=== PATIENT | male | born 1940 | race Caucasian/White ===

== ENCOUNTER 2019-12-20 07:52 | Day surgery (SDC) | payer MEDICARE, OTHER ==
[2019-12-13 11:34] LABS: BASOPHILS # (AUTO) 0.1 X10'3 (0-0.2); BASOPHILS % (AUTO) 1.4 % (0-1); EOSINOPHILS # (AUTO) 0.3 X10'3 (0-0.9); EOSINOPHILS % (AUTO) 5.7 % (0-6); LYMPHOCYTES # (AUTO) 1.8 X10'3 (1.1-4.8); LYMPHOCYTES % (AUTO) 29.1 % (21-51); MEAN CORPUSCULAR HEMOGLOBIN 32.8 PG (27.0-31.0); MEAN CORPUSCULAR HGB CONC 34.6 g/dL (33.0-36.5); MEAN CORPUSCULAR VOLUME 94.7 FL (78-98); MEAN PLATELET VOLUME 8.4 FL (7.4-10.4); MONOCYTES # (AUTO) 0.6 X10'3 (0-0.9); MONOCYTES % (AUTO) 10.5 % (2-12); NEUTROPHILS # (AUTO) 3.2 X10'3 (1.8-7.7); NEUTROPHILS % (AUTO) 53.3 % (42-75); PRE OP HEMATOCRIT 40.7 % (42.0-52.0); PRE OP HEMOGLOBIN 14.1 g/dL (14.0-17.9); PRE OP PLATELET COUNT 181 X10'3 (140-440); RED BLOOD COUNT 4.29 X10'6 (4.70-6.10); RED CELL DISTRIBUTION WIDTH 13.1 % (11.5-14.5)
[2019-12-13 11:45] LABS: PRE OP PROTIME 36.1 SECONDS (9.0-12.0)
[2019-12-13 11:48] LABS: ALBUMIN 3.9 G/DL (3.4-5.0); ALBUMIN/GLOBULIN RATIO 1.1 (1.1-1.5); ALKALINE PHOSPHATASE 70 IU/L (46-116); BLOOD UREA NITROGEN 13 MG/DL (7-18); CALCIUM 8.7 MG/DL (8.5-10.1); CHLORIDE 107 MMOL/L (99-107); CREATININE 0.93 MG/DL (0.60-1.10); PRE OP ALT 24 U/L (30-65); PRE OP ANION GAP 6 (8-16); PRE OP AST 19 U/L (10-37); PRE OP BILIRUB, TOTAL 0.6 MG/DL (0.0-1.0); PRE OP GLUCOSE 95 MG/DL (70-104); PRE OP POTASSIUM 4.3 MMOL/L (3.4-5.1); PRE OP SODIUM 143 MMOL/L (135-145); TOTAL CARBON DIOXIDE 30.2 MMOL/L (24-32); TOTAL PROTEIN 7.3 G/DL (6.4-8.2); eGFR 79 ML/MIN
[2019-12-13 12:09] LABS: PRE OP INR 3.8 INR
[~2019-12-20] VITALS: Ht 177.8 cm; Wt 86.0 kg
[~2019-12-20 07:52] MED LIST: CHOL20002 PO; COU3T PO; DIGO125T AD; DILT-36 PO; LOVA40TA76 PO; MULT-1085 PO; OMEG-156 PO; TIM0.5OS OP; ceFAZolin 2gm in dextrose, iso 50 ML IV ONE; famotidine 20mg tablet PO ONE; ringers solution, lacted 1,000 ML IV SCH
[2019-12-20] MEDS ORDERED: LIDOcaine 0.5% (5mg/ml) 50ml vial ONE ×2 (08:01→09:24)
[2019-12-20 08:05] VITALS: BP 147/81
[2019-12-20] MEDS ORDERED: ringers solution, lacted 1,000 ML IV SCH (09:21)
[2019-12-20] MEDS ORDERED: morphine 4 MG/ML inj SYRINge IV PRN (09:25)
[2019-12-20] MEDS ORDERED: fentaNYL/PF 50MCG/1 ML 2ML syringe IV PRN ×2 (09:25)
[2019-12-20] MEDS ORDERED: labetalol 20mg/4ml (5mg/ml) syringe IV PRN (09:25)
[2019-12-20] MEDS ORDERED: hydrALAZINE 20mg/ml inj. IV PRN (09:25)
[2019-12-20] MEDS ORDERED: ondansetron/PF 4mg/2ml inj IV PRN (09:25)
[2019-12-20] MEDS ORDERED: morphine 2 MG/ML inj. syringe IV PRN (09:25)
[2019-12-20 09:43] LABS: PRE OP PROTIME 40.2 SECONDS (9.0-12.0)
[2019-12-20 09:46] LABS: PRE OP INR 4.3 INR
[2019-12-20] MEDS ORDERED: BUPIVAcaine/PF 2.5 mg/ml (0.25%) 30ml vial ONE (09:55)
--- NOTE | 2019-12-20 10:00 | NUR ---
INR 4.3. DR ANGEL NOTIFIED. SURGERY CANCELED. DR ANGEL AT THE BEDSIDE AND SPOKE WITH PT REGARDING SURGERY CANCELATION. DR AVELAR'S OFFICE ([facility]) NOTIFIED OF ELEVATED PT/INR AND RESULTS FAXED TO OFFICE. DR AVELAR TO REGULATE PT/INR AND SURGERY TO BE RESCHEDULED.
--- NOTE | 2019-12-20 10:25 | NUR ---
SURGERY CANCELED R/T INCREASED PT/INR. DR ANGEL SPOKE WITH PT REGARDING THE NEED TO F/U WITH DR AVELAR (PMD). PT VERBALIZED UNDERSTANDING FOR F/U CARE WITH PMD. LAB RESULTS CALLED AND FAXED TO DR AVELAR'S OFFICE. IV X3 DC'D WITH CANNULAS INTACT AND PRESSURE DDSGINGS APPLIED. DC HOME VIA AMB WITH ALL BELONGINGS BY RN TO PVT AUTO WITH TO RECEIVE. Addendum: 12/20/19 at 1118 by Marlen Bell RN Amended: Links added.
== END 2019-12-20 10:25 | disposition home or self-care (01) ==
LOC: PAS 07:52
PROVIDERS: ATTEND Orthopaedic Surgery Hand Surgery
DX: M72.0 Palmar fascial fibromatosis [Dupuytren] (principal); Z53.8 Procedure and treatment not carried out for other reasons; Z11.59 Encounter for screening for other viral diseases; M79.642 Pain in left hand
CPT/HCPCS: 36415; 80053; 82948; 85025; 85610; 85730; 93005; J2001; J3490; U0003; J7120

== ENCOUNTER 2020-03-17 08:19 | Day surgery (SDC) | payer MEDICARE, OTHER ==
[2020-03-13 16:43] LABS: BASOPHILS # (AUTO) 0.1 X10'3 (0-0.2); BASOPHILS % (AUTO) 1.2 % (0-1); EOSINOPHILS # (AUTO) 0.4 X10'3 (0-0.9); EOSINOPHILS % (AUTO) 6.7 % (0-6); LYMPHOCYTES # (AUTO) 1.7 X10'3 (1.1-4.8); LYMPHOCYTES % (AUTO) 32.6 % (21-51); MEAN CORPUSCULAR HEMOGLOBIN 32.4 PG (27.0-31.0); MEAN CORPUSCULAR HGB CONC 34.2 g/dL (33.0-36.5); MEAN CORPUSCULAR VOLUME 94.6 FL (78-98); MEAN PLATELET VOLUME 8.7 FL (7.4-10.4); MONOCYTES # (AUTO) 0.5 X10'3 (0-0.9); MONOCYTES % (AUTO) 9.2 % (2-12); NEUTROPHILS # (AUTO) 2.7 X10'3 (1.8-7.7); NEUTROPHILS % (AUTO) 50.3 % (42-75); PRE OP HEMATOCRIT 41.1 % (42.0-52.0); PRE OP HEMOGLOBIN 14.1 g/dL (14.0-17.9); PRE OP PLATELET COUNT 183 X10'3 (140-440); RED BLOOD COUNT 4.35 X10'6 (4.70-6.10); RED CELL DISTRIBUTION WIDTH 13.4 % (11.5-14.5)
[2020-03-13 16:53] LABS: ALBUMIN/GLOBULIN RATIO 1.3 (1.1-1.5); ALKALINE PHOSPHATASE 71 IU/L (46-116); BLOOD UREA NITROGEN 13 MG/DL (7-18); CALCIUM 8.7 MG/DL (8.5-10.1); CHLORIDE 103 MMOL/L (99-107); CREATININE 0.81 MG/DL (0.60-1.10); PRE OP ALT 25 U/L (30-65); PRE OP ANION GAP 7 (8-16); PRE OP AST 15 U/L (10-37); PRE OP BILIRUB, TOTAL 0.6 MG/DL (0.0-1.0); PRE OP GLUCOSE 106 MG/DL (70-104); PRE OP POTASSIUM 3.9 MMOL/L (3.4-5.1); PRE OP SODIUM 140 MMOL/L (135-145); TOTAL CARBON DIOXIDE 29.7 MMOL/L (24-32); TOTAL PROTEIN 7.2 G/DL (6.4-8.2); eGFR > 90 ML/MIN
[2020-03-13 17:15] LABS: PARTIAL THROMBOPLASTIN TIME 36 SECONDS (22-32)
[2020-03-17] VITALS (9 sets, daily range): BP systolic 116–161; BP diastolic 79–89
[~2020-03-17] VITALS: Ht 177.8 cm; Wt 84.8 kg
[~2020-03-17 08:19] MED LIST changes: +BUPIVAcaine/PF 2.5mg/ml (0.25%) 10ml vial ONE; +LIDOcaine 0.5% (5mg/ml) 50ml vial ONE
[2020-03-17] MEDS ORDERED: labetalol 20mg/4ml (5mg/ml) syringe IV PRN (09:35)
[2020-03-17] MEDS ORDERED: hydrALAZINE 20mg/ml inj. IV PRN (09:35)
[2020-03-17] MEDS ORDERED: ringers solution, lacted 1,000 ML IV SCH (09:35)
[2020-03-17] MEDS ORDERED: ondansetron/PF 4mg/2ml inj IV PRN (09:35)
[2020-03-17] MEDS ORDERED: morphine 2 MG/ML inj. syringe IV PRN (09:35)
[2020-03-17] MEDS ORDERED: morphine 4 MG/ML inj SYRINge IV PRN (09:35)
[2020-03-17] MEDS ORDERED: fentaNYL/PF 50MCG/1 ML 2ML syringe IV PRN ×2 (09:35)
[2020-03-17] MEDS ORDERED: fentaNYL/PF 50MCG/1 ML 2ML syringe ONE ×2 (11:52)
[2020-03-17] MEDS ORDERED: MIDAZolam 5mg/5ml vial ONE ×2 (11:52)
[2020-03-17] MEDS ORDERED: BUPIVAcaine/PF 2.5mg/ml (0.25%) 10ml vial ONE (11:55)
--- NOTE | 2020-03-17 12:43 | NUR ---
Received from OR via [facility] , accompanied by Anesthesiologist WILLIE and report given by Anesthesiolgist. PATIENT WITH 20G PIV IN LEFT UE RUNNING LR AT 100. LEFT AND RIGHT WRIST HAND DRESSINGS ARE CDI. 10L MASK ON WITH 96% SATURATIONS. Addendum: 03/17/20 at 1253 by Glenn Marin RN, RN Amended: Links added.
--- NOTE | 2020-03-17 13:53 | NUR ---
PATIENT AND FAMILY AND THEY HAVE VERBALIZED UNDERSTANDING, OPPORTUNITY TO ASK QUESTIONS GIVEN AND PATIENT COMFORTABLE WITH DC. IV TAKEN OUT WITHOUT COMPLICATION. PATIENT HAS MET ALL DC CRITERIA FOR DC HOME. I HAVE REVIEWED D/C INSTRUCTIONS WITH OUT VIA WHEELCHAIR WHERE PATIENT WAS TAKEN HOME WITH ALL BELONGINGS. FAMILY GAVE PATIENT TRANSPORT HOME. SUNNY TOOK PATIENT HOME IN PERSONAL VEHICLE. Addendum: 03/17/20 at 1406 by Glenn Marin RN, RN Amended: Links added.
--- NOTE | 2020-03-17 15:35 | NUR ---
PATIENT AND FAMILY AND THEY HAVE VERBALIZED UNDERSTANDING, OPPORTUNITY TO ASK QUESTIONS GIVEN AND PATIENT COMFORTABLE WITH DC. IV TAKEN OUT WITHOUT COMPLICATION. PATIENT HAS MET ALL DC CRITERIA FOR DC HOME. I HAVE REVIEWED D/C INSTRUCTIONS WITH OUT VIA WHEELCHAIR WHERE PATIENT WAS TAKEN HOME WITH ALL BELONGINGS. FAMILY GAVE PATIENT TRANSPORT HOME. CALLED MD DUGAN FOR PAIN MED CHANGE ORDERS. STATES THAT HE WILL CALL IN [place] AT HIS PHARMACY. CALLED [employer] FROM [facility]. TIME CLOCK REPAIRER PHONE NUMBER PROVIDED. CALLED TO FIND STATUS OF KNEE SCOOTER. ARRANGED TRANSPORT TO GET THE SCOOTER AT [facility]. TIME CLOCK REPAIRER PICKED UP SCOOTER AND THEN PICKED UP PATIENT HERE AT [facility]. PATIENT VOIDED PRIOR TO LEAVING, PAIN CONTROLLED, CAST ELEVATOR PROVIDED TO PATIENT AND ENCOURAGED TO KEEP FOOT ABOVE KNEE AND KNEE ABOVE HEART. PATIENT TAKEN VIA WHEELCHAIR TO TRANSPORT AND THEN TO HOME IN [place]. ALL QUESTIONS ANSWERED AND PATIENT STATED HE WAS GRATEFUL FOR THE CARE PROVIDED. Addendum: 03/17/20 at 1556 by Glenn Marin RN, RN Amended: Links added.
== END 2020-03-17 13:53 | disposition home or self-care (01) ==
LOC: PAS 08:19
PROVIDERS: ATTEND Orthopaedic Surgery Hand Surgery
DX: M72.0 Palmar fascial fibromatosis [Dupuytren] (principal); I10 Essential (primary) hypertension; I48.91 Unspecified atrial fibrillation; E11.9 Type 2 diabetes mellitus without complications; Z79.899 Other long term (current) drug therapy; Z79.01 Long term (current) use of anticoagulants; Z95.0 Presence of cardiac pacemaker; Z98.41 Cataract extraction status, right eye; Z98.42 Cataract extraction status, left eye; Z87.891 Personal history of nicotine dependence; Z72.89 Other problems related to lifestyle; Z79.84 Long term (current) use of oral hypoglycemic drugs; Z20.828 Contact with and (suspected) exposure to other viral communicable diseases
CPT/HCPCS: 26040; 26123; 36415; 80053; 82948; 85025; 85610; 85730; 87635; A6222; J2001; J2250; J3010; J3490; J7120; A4215; A4618; A6449; A7000

== ENCOUNTER 2024-12-09 05:37 | Day surgery (SDC) | payer MEDICARE, OTHER ==
[2024-12-02 10:52] LABS: MEAN PLATELET VOLUME 7.8 FL (7.4-10.4); PRE OP HEMATOCRIT 40.2 % (42.0-52.0); PRE OP HEMOGLOBIN 13.9 g/dL (14.0-17.9); PRE OP PLATELET COUNT 197 X10'3 (140-440); PRE OP WHITE BLOOD COUNT 5.3 10'3 (4.8-10.8); RED CELL DISTRIBUTION WIDTH 13.6 % (11.5-14.5)
[2024-12-02 11:07] LABS: CREATININE 1.08 MG/DL (0.60-1.10); PRE OP ALT 22 U/L (30-65); PRE OP ANION GAP 6 (8-16); PRE OP AST 18 U/L (10-37); PRE OP BILIRUB, TOTAL 0.8 MG/DL (0.0-1.0); PRE OP GLUCOSE 80 MG/DL (70-104); PRE OP POTASSIUM 3.8 MMOL/L (3.4-5.1); PRE OP SODIUM 140 MMOL/L (135-145); TOTAL CARBON DIOXIDE 32.5 MMOL/L (24-32); eGFR 65 ML/MIN
[2024-12-09] VITALS (13 sets, daily range): BP systolic 103–139; BP diastolic 62–86; PULSE 50–62; RESP 9–16; TEMP 97.6; O2SAT 91–100
[~2024-12-09] VITALS: Ht 177.8 cm; Wt 86.1 kg
[~2024-12-09 05:37] MED LIST changes: +APIX5TAB3 PO; -BUPIVAcaine/PF 2.5mg/ml (0.25%) 10ml vial ONE; +CHOL100046 PO; -CHOL20002 PO; -COU3T PO; -DIGO125T AD; +LATA2.5D14 EACHEYE; -LIDOcaine 0.5% (5mg/ml) 50ml vial ONE; +METF-516 PO; -ceFAZolin 2gm in dextrose, iso 50 ML IV ONE; -famotidine 20mg tablet PO ONE; -ringers solution, lacted 1,000 ML IV SCH
[2024-12-09] MEDS: ceFAZolin 2gm/dext,iso 50mL 50 ML IV ONE (05:52)
[2024-12-09] MEDS: ringers solution, lacted 1,000 ML IV SCH (06:08)
[2024-12-09] MEDS ORDERED: BUPIVAcaine/PF 2.5 mg/ml (0.25%) 30ml vial ONE (06:52)
[2024-12-09] MEDS ORDERED: LIDOcaine 1% (10mg/ml)w/preservative inj. 20ml MDV ONE (06:54)
[2024-12-09] MEDS ORDERED: LIDOcaine 1% 30ml preserv. free vial ONE (06:54)
[2024-12-09] MEDS ORDERED: hydrALAZINE 20mg/ml inj. IV PRN (07:30)
[2024-12-09] MEDS ORDERED: ringers solution, lacted 1,000 ML IV SCH (07:30)
[2024-12-09] MEDS ORDERED: HYDROmorphone/PF 0.2 MG/ML SYRINGE IV PRN ×2 (07:30)
[2024-12-09] MEDS ORDERED: morphine 4 MG/ML inj SYRINge IV PRN (07:30)
[2024-12-09] MEDS ORDERED: ondansetron/PF 4mg/2ml inj IV PRN (07:30)
[2024-12-09] MEDS ORDERED: labetalol 20mg/4ml (5mg/ml) syringe IV PRN (07:30)
[2024-12-09] MEDS ORDERED: fentaNYL /PF 50mcg/ml 5ml ampule ONE (07:39)
[2024-12-09] MEDS ORDERED: midazolam 1 mg/ML 2ml injection ONE ×2 (07:39→07:40)
--- NOTE | 2024-12-09 07:42 | HISTORY AND PHYSICAL ---
History & Physical Providers to CC CC: CHRIS HEBERT MD ~ History of Present Illness Reason for Admit\Complaint: Right inguinal hernia History of Present Illness Interval history and physical exam Patient is here today for elective repair of his right inguinal hernia He was seen in the office greater than 30 days ago but denies any change in his past medical history (please see previous history and physical exam for all pertinent details) He is scheduled for robotic assisted, laparoscopic right, possible left inguinal hernia repair with mesh Allergies: Coded Allergies: No Known Allergies (Unverified , 07/30/11) Home Medications Home Medications Active Reported Metformin HCl ER (Metformin HCl) 500 Mg Tab.er.24 1 Tab PO BID 30 Days Vitamin D3 (Cholecalciferol (Vitamin D3)) 25 Mcg (1000 Unit) Capsule 1 Cap PO DAILY 30 Days Eliquis (Apixaban) 5 Mg Tablet 1 Tab PO BID Latanoprost 0.005 % Drops 1 Drop EACHEYE QPM Diltiazem 24Hr Cd (Diltiazem HCl) 180 Mg Cap.er.24h 180 Mg PO DAILY Fish Oil Quincy-3 Softgel (Quincy-3S/Dha/Epa/Fish Oil) 1 Each Capsule.dr 1 Capsule PO DAILY Multi Vitamin Daily (Multivitamin) 1 Each Tablet 1 Each PO DAILY Timoptic 0.5%* (Timolol Maleate) 15 Ml Bottle 1 Drp OP DAILY Mevacor* (Lovastatin) 40 Mg Tablet 40 Mg PO DAILY ROS ROS Reviewed and negative Exam Vitals: Vital Signs Date Time Temp Pulse Resp B/P (MAP) Pulse Ox O2 Delivery O2 Flow Rate FiO2 12/09/24 05:48 16 99 Room Air 12/09/24 05:48 61 12/09/24 05:48 97.6 123/81 (95) General: 84 year old male in no acute distress Chest: Lungs are clear to auscultation bilaterally Cardiovascular: Regular rate and rhythm without murmurs Abdomen: Soft and nondistended Right side marked Problems: (1) Right inguinal hernia Assessment & Plan: The risks, benefits, and alternatives to a robotic assisted, laparoscopic right possible left inguinal hernia repair with mesh were discussed with the patient. Risks include, but are not limited to, bleeding, infection, injury to intra-abdominal structures, hernia recurrence and chronic postoperative pain. Patient verbalized understanding and wishes to proceed with surgery. We will do so today as scheduled CHRIS HEBERT MD Dec 09, 2024 07:42
[2024-12-09] MEDS ORDERED: rocuronium 10mg/ml inj IV ONE (07:52)
[2024-12-09] MEDS ORDERED: propofol inj 20 ML IV ONE (07:52)
[2024-12-09] MEDS ORDERED: LIDOcaine 2% (20mg/ml) 5ml vial ONE (07:52)
[2024-12-09] MEDS ORDERED: dexamethasone sod phosphate 4mg/ml inj. ONE (08:08)
[2024-12-09] MEDS ORDERED: ondansetron/PF 4mg/2ml inj ONE (08:08)
[2024-12-09] MEDS: BUPIVAcaine/PF 2.5 mg/ml (0.25%) 30ml vial IJ ONE (08:14)
[2024-12-09] MEDS ORDERED: glycopyrrolate 0.2mg/ml inj ONE (08:50)
--- NOTE | 2024-12-09 09:03 | OPERATIVE REPORT ---
Operative Report Providers to CC: PEDRO HEBERT MD ~ Date of Procedure: Dec 09, 2024 Pre-Operative Diagnosis: Right inguinal hernia Post-Operative Diagnosis SAME as PRE-Op Procedure Performed Robotic assisted, laparoscopic right inguinal hernia repair with mesh Surgeon: Pedro Hebert MD FACS Safety Companion None Anesthesiologist: Hu Villarreal Type of Anesthesia: General Findings: Very large indirect right inguinal hernia extending deep into the right hemiscrotum Wound class I Complications None Prosthetics\Implants used: Extra-large Dextile mesh Estimated Blood Loss: Minimal Specimen Removed: None Description of Procedure: Patient was brought to the operating room and identified by the nursing staff and the attending physician. Patient was placed supine and general anesthesia was induced. Patient's abdomen was prepped and draped in standard sterile fashion. Preoperative antibiotics were given. Supraumbilical incision was made to allow for standard Lopes entry technique. Laparoscope was inserted after insufflation. Bilateral, 8.5 mm robotic trochars were placed under laparoscopic guidance following administration of local anesthetic. The Bancore A/S Alexandra robotic arm was docked to the patient and instruments placed intra-abdominally under laparoscopic visualization. The left hemipelvis was examined and showed no evidence of left inguinal hernia. An indirect hernia was identified on the right side. Hernia sac was fairly large in size. A rent was created in the peritoneum from the median umbilical fold and carried out laterally towards the anterior superior iliac spine. Preperitoneal flap was created and carried down to the symphysis pubis. The retropubic space of Retzius was developed and the bladder swept medially. Dissection was carried out laterally until an indirect hernia sac was identified. This was quite large in size, extending deep into the right hemiscrotum. Hernia sac was completely dissected away from the cord structures and reduced. The critical view of the myopectineal orifice was achieved. Dissection was carried out laterally to allow space for mesh deployment. An extra- large, Dextile mesh and suture was passed intra-abdominally. Mesh was laid in the preperitoneal space covering both indirect, direct, and potential femoral and obturator hernias. Mesh laid without wrinkles or folds. 3 tacking sutures using 0 Ethibond were used to fix the mesh at the symphysis pubis, rectus abdominis, and just anterior to the anterior superior iliac spine. The peritoneal rent was then closed with running, 2/0, absorbable locking suture. Temple were retrieved. Abdomen was deflated and secondary trochars removed. Fascia at the umbilical port site was closed with 0 Vicryl sutures. Skin incisions were closed with 4-0 Monocryl sutures in a subcuticular fashion. Sterile dressings were applied. Patient was awakened and taken to the postanesthesia care unit in stable condition. Counts repoted as correct: Yes PEDRO HEBERT MD Dec 09, 2024 09:03
[2024-12-09] MEDS: acetaminophen 1,000mg/100ml IV 100 ML IV PRN (09:26)
[2024-12-09] MEDS: HYDROcodone/acetaminophen 5mg/325mg tablet PO PRN (12:13)
== END 2024-12-09 12:40 | disposition home or self-care (01) ==
LOC: PAS 05:37
PROVIDERS: ATTEND Surgery
DX: K40.90 Unilateral inguinal hernia, without obstruction or gangrene, not specified as recurrent (principal); I48.91 Unspecified atrial fibrillation; E11.9 Type 2 diabetes mellitus without complications; Z87.891 Personal history of nicotine dependence; Z98.49 Cataract extraction status, unspecified eye; Z98.890 Other specified postprocedural states; Z79.899 Other long term (current) drug therapy; Z95.0 Presence of cardiac pacemaker
CPT/HCPCS: 36415; 49650; 80053; 82948; 85025; A4215; A4314; A4615; A4618; C1781; J0131; J1100; J2003; J2250; J2405; J2704; J2710; J3010; J3490; J7030; J7120; Z7506; Z7508; Z7512; Z7610